=== PATIENT | male | born 1975 | race Two or more races ===

== ENCOUNTER 2023-07-28 01:10 | Emergency (ER) | payer SELFPAY ==
[~2023-07-28] VITALS: Ht 157.5 cm; Wt 85.7 kg
[2023-07-28] MEDS ORDERED: HYDROCODONE/APAP 10/325MG TABLET ONE (01:35)
[2023-07-28] MEDS ORDERED: HYDROCODONE/APAP 10/325MG TABLET PO ONE (02:00)
[2023-07-28] MEDS ORDERED: TRAM50TA2 PO (03:36)
[2023-07-28 03:44] VITALS: BP 151/87; TEMP 98.1; O2SAT 98
== END 2023-07-28 03:44 | disposition home or self-care (01) ==
LOC: EDBD 01:15 → ER 01:15
DX: R07.81 Pleurodynia (principal); V89.2XXA Person injured in unspecified motor-vehicle accident, traffic, initial encounter; Y93.89 Activity, other specified; Y92.89 Other specified places as the place of occurrence of the external cause; Y99.8 Other external cause status
CPT/HCPCS: 71100-TC